=== PATIENT | female | born 1980 | race Caucasian/White ===

== ENCOUNTER → 2017-03-26 | Outpatient (CLI) | payer OTHER ==
[~2017-03-26] MED LIST: FLOMAX0.4 M1 PO; NAPROXEN PO; VICODIN 5/1 TAB 5/50 PO; VITAMIN D2000 UNI1 PO
--- NOTE | ~2017-03-26 | CR59 ---
[facility] A Service of [facility] RADIOLOGY TEXT RESULTS PATIENT: SONA SALOMON LOCATION: [facility] : 84 UNIT #: [id number] AGE: [address]: Linda Chavis APRN SEX: F ORDER DR: [id number] [facility] [address] [place], [place] [address] [id number] O MR#: [id number] Acc #: [id number] NAME: SONA SALOMON : 1980 SEX: F STUDY DATE/TIME: 03/26/2017 16:05 UNIT: [facility] ROOM: STUDY DESCRIPTION: CR Cervical Spine 5 View W Fle Attending Physician: Linda Chavis Referring Physician: Linda Chavis Ordering Physician: Linda Chavis Primary Care Physician: Elma Rosario Aprn MEDICAL IMAGING REPORT This report is preliminary unless electronic signature is present EXAM Cervical spine series HISTORY Neck pain with right hand numbness for the past 2 years. TECHNIQUE Six views of the cervical spine were obtained, including lateral flexion and extension views. FINDINGS Alignment is satisfactory. Disc space heights are preserved. In extension, there is a very subtle retrolisthesis of C5 on C6 of about 2 mm that resolves in flexion, suggesting some mild ligamentous instability. No instability is seen at C1-2. Moderate posterior facet degenerative changes are seen across C7-T1. No fractures or destructive bone lesions are seen and no prevertebral soft tissue swelling is noted. IMPRESSION 1. There is mild subluxation between flexion and extension at C5-6, where there is minimal retrolisthesis in extension that resolves in flexion. There is moderate facet arthropathy at C7-T1. Dictated by... Jf Dillard M.D. THIS IS AN ELECTRONICALLY VERIFIED REPORT Jf Dillard M.D. at 03/31/2017 2:13 PM RLF/mary jo TD: 03/27/2017 05:14 JOB #: [id number] [facility] A Service of [facility] RADIOLOGY TEXT RESULTS PATIENT: SONA SALOMON [id number] : 84 UNIT #: [id number] AGE: [address]: Linda Chavis APRN SEX: F ORDER DR: MEDICAL IMAGING REPORT Page 1 of 1 COPY
== END | disposition home or self-care (01) ==
LOC: CRAD 15:50
DX: M54.2 Cervicalgia (principal); M43.5X2 Other recurrent vertebral dislocation, cervical region; M46.93 Unspecified inflammatory spondylopathy, cervicothoracic region
CPT/HCPCS: 72052